=== PATIENT | male | born 2000 | race Hispanic/Latino ===

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

== ENCOUNTER 2024-07-25 04:55 | Emergency (ER) | payer OTHER, BC ==
[~2024-07-25] VITALS: Ht 182.9 cm; Wt 99.8 kg
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
--- NOTE | 2024-07-25 05:03 | NUR ---
PATIENT TO CT WITH RN
--- NOTE | 2024-07-25 05:14 | NUR ---
PATIENT BACK FROM CT WITH RN
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
[2024-07-25] MEDS: teTANUS/diphthERIA TOXOID [ADULT] 0.5 ML VIAL IM ONE (05:31)
[2024-07-25] MEDS: ketOROlac 15MG/ML VIAL (15MG/ML) IV ONE (05:32)
[2024-07-25 05:33] LABS: BASOPHILS # (AUTO) 0.06 K/uL (0.00-0.20); BASOPHILS % (AUTO) 0.4 % (0.0-5.0); HEMATOCRIT 44.3 % (42-54); IMMATURE GRANULOCYTE ABSOLUTE 0.07 K/uL (0-1); LYMPHOCYTES # (AUTO) 1.2 K/uL (1.0-4.8); LYMPHOCYTES % (AUTO) 8.4 % (21.0-51.0); MEAN CORPUSCULAR HEMOGLOBIN 30.2 pg (27.0-33.0); MEAN CORPUSCULAR HGB CONC 33.2 g/dL (32.0-36.0); MEAN CORPUSCULAR VOLUME 91.2 fL (79-99); MONOCYTES # (AUTO) 0.5 K/uL (0.1-1.0); MONOCYTES % (AUTO) 3.4 % (3.0-13.0); NEUTROPHILS # (AUTO) 12.9 K/uL (1.8-7.7); NEUTROPHILS % (AUTO) 87.3 % (40.0-77.0); PLATELET COUNT (AUTO) 246 K/uL (130-400); RED BLOOD CELL COUNT(AUTO) 4.86 MIL/uL (4.50-6.20); RED CELL DISTRIBUTION WIDTH 12.7 % (11.0-15.5); WHITE BLOOD COUNT (AUTO) 14.8 K/uL (4.8-10.8)
[2024-07-25 05:46] LABS: CREATININE 0.8 mg/dL (0.5-1.3); POTASSIUM 4.1 mmol/L (3.5-5.1)
[2024-07-25 05:54] LABS: WBC MORPHOLOGY CONSISTENT W/DIFF
--- NOTE | 2024-07-25 06:23 | NUR ---
TRANSFER CALL PLACED TO [facility] [employer] TO INITIATE TRANSFER FOR TRAUMA PT. NEEDING MAXILLOFACIAL SERVICES
[2024-07-25] MEDS: ketOROlac 30MG VIAL (30MG/ML) IVP ONE (06:34)
--- NOTE | 2024-07-25 06:51 | HMCIMG ---
CT HEAD/BRAIN W/O CONTRAST HISTORY: Trauma COMPARISON: None TECHNIQUE: Multiple sequential axial images of the head were obtained from the base of the skull through vertex. Patient was not given contrast through intravenous route. FINDINGS: The ventricles and extraventricular CSF spaces are nondilated for patient's age. There is no midline shift, mass effect or herniation. No acute intracranial bleed is seen. Visualized portion of the paranasal sinuses are grossly within normal limits. Bilateral facial soft tissue swelling is seen with left greater than right. IMPRESSION: 1. No acute intracranial bleed is seen. CT was performed with one or more following dose reduction techniques: automated exposure control, adjustment of the mA and kv according to patient's size, or use of a iterative reconstruction technique.
--- NOTE | 2024-07-25 06:55 | HMCIMG ---
CT CERVICAL SPINE W/O CONTRAST HISTORY: Trauma COMPARISON: None TECHNIQUE: Multiple sequential axial images of the cervical spine were obtained including post processing sagittal and coronal reconstruction images. Patient was not given contrast through intravenous route. FINDINGS: There is straightening of normal lordotic cervical curvature which may be related to muscle spasm or positioning. There is no loss of vertebral height. Evaluation for disc and cord pathology is limited with CT study. No evidence of fracture or dislocation is seen. IMPRESSION: 1. No fracture is seen. CT was performed with one or more following dose reduction techniques: automated exposure control, adjustment of the mA and kv according to patient's size, or use of a iterative reconstruction technique.
--- NOTE | 2024-07-25 07:25 | HMCIMG ---
CT MAXILLOFACIAL W/O CONTRAST HISTORY: Trauma COMPARISON: None TECHNIQUE: Multiple sequential high-resolution axial images of the paranasal sinuses were obtained. Postprocessing sagittal and coronal reconstruction images were also obtained. Patient was not given contrast through intravenous route. FINDINGS: Nasal septum is grossly midline. There is mild mucoperiosteal thickening involving the paranasal sinuses. The infundibula are patent bilaterally. Acute minimally displaced fracture involving the right mandibular ramus. Bilateral facial soft tissue swelling is seen over the left zygoma and right maxillary soft tissue. There is no evidence of air-fluid level in the paranasal sinuses. Parapharyngeal fat planes are preserved bilaterally. IMPRESSION: 1. Acute minimally displaced fracture involving the right mandibular ramus. Bilateral facial soft tissue swelling is seen over the left zygoma and right maxillary soft tissue. CT was performed with one or more following dose reduction techniques: automated exposure control, adjustment of the mA and kv according to patient's size, or use of a iterative reconstruction technique.
[2024-07-25 07:49] VITALS: BP 100/51; PULSE 70; RESP 16; TEMP 97.4; O2SAT 96
--- NOTE | 2024-07-25 07:56 | NUR ---
TRANSFER PT. ACCEPTED @ 0628 BY ROXANNA WOLF MD FOR TRANSFER TO [facility]. BED ASSIGNMENT AT THIS TIME: ER. REPORT: [phone].
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
== END 2024-07-25 08:30 | disposition short-term general hospital (02) ==
LOC: EDH 04:55
DX: S02.641A Fracture of ramus of right mandible, initial encounter for closed fracture (principal); M26.621 Arthralgia of right temporomandibular joint; Y04.2XXA Assault by strike against or bumped into by another person, initial encounter; Y93.89 Activity, other specified; Y92.89 Other specified places as the place of occurrence of the external cause; Y99.8 Other external cause status
CPT/HCPCS: 99285; 70450; 96374; 80048; 85025; 36415; 90714; 72125; 70486; 90471; J1885; 99284